=== PATIENT | female | born 1995 | race Hispanic/Latino ===

== ENCOUNTER 2021-01-09 23:10 | Emergency (ER) | payer OTHER ==
[~2021-01-09] VITALS: Ht 157.5 cm; Wt 61.2 kg
[2021-01-09] MEDS ORDERED: LORATADINE 10 MG TABLET PO ONE (23:30)
[2021-01-09] MEDS ORDERED: SOLU-MEDROL 125MG VIAL IVP ONE (23:30)
[2021-01-09] MEDS ORDERED: DiphenhydrAMINE HCL 50 MG/ML VIAL IV ONE (23:30)
[2021-01-09] MEDS ORDERED: DiphenhydrAMINE HCL 50 MG/ML VIAL ONE (23:36)
[2021-01-09] MEDS ORDERED: LORATADINE 10 MG TABLET ONE (23:37)
[2021-01-09] MEDS ORDERED: SOLU-MEDROL 125MG VIAL ONE (23:37)
[2021-01-09 23:38] LABS: BASOPHILS % (AUTO) 0.1 % (0.0-5.0); EOSINOPHILS % (AUTO) 4.3 % (0.0-8.0); LYMPHOCYTES % (AUTO) 29.6 % (21.0-51.0); MEAN CORPUSCULAR HEMOGLOBIN 25.3 pg (27.0-33.0); MEAN CORPUSCULAR HGB CONC 32.1 g/dL (32.0-36.0); MEAN CORPUSCULAR VOLUME 78.7 fL (79-99); MONOCYTES % (AUTO) 11.5 % (3.0-13.0); NEUTROPHILS % (AUTO) 54.2 % (40.0-77.0); PLATELET COUNT (AUTO) 259 K/uL (130-400); RED BLOOD CELL COUNT(AUTO) 4.83 MIL/uL (4.00-5.50); RED CELL DISTRIBUTION WIDTH 15.9 % (11.0-15.5); WHITE BLOOD COUNT (AUTO) 7.6 K/uL (4.8-10.8)
[2021-01-09 23:52] LABS: ALBUMIN 4.2 g/dL (3.5-5.0); BILIRUBIN,TOTAL 0.3 mg/dL (0.2-1.0); CREATININE 0.9 mg/dL (0.5-1.5); POTASSIUM 3.4 mmol/L (3.5-5.1); TOTAL PROTEIN, SERUM 8.6 g/dL (6.0-8.3)
[2021-01-10] MEDS ORDERED: DEXA6TAB7 PO (00:13)
[2021-01-10] MEDS ORDERED: LORA10TA7 PO (00:13)
[2021-01-10 00:20] VITALS: BP 128/68
== END 2021-01-10 00:28 | disposition home or self-care (01) ==
LOC: EDH 23:10
DX: T78.3XXA Angioneurotic edema, initial encounter (principal); K13.0 Diseases of lips; Z88.0 Allergy status to penicillin; Z91.048 Other nonmedicinal substance allergy status
CPT/HCPCS: 36415; 80053; 85025; 96374; 96375; 99284; J1200; J2930